=== PATIENT | female | born 1990 | race Hispanic/Latino ===

== ENCOUNTER 2018-12-24 12:36 | Observation (INO) | payer MEDICAID ==
[~2018-12-24] VITALS: Ht 165.1 cm; Wt 96.6 kg
[2018-12-24 13:30] LABS: APPEARANCE,URINE Clear (CLEAR); BILIRUBIN,URINE Negative (NEGATIVE); COLOR,URINE Yellow (YELLOW); GLUCOSE, URINE (UA) Negative (NEGATIVE); KETONES,URINE 40 mg/dL (NEGATIVE); LEUKOCYTE ESTERASE ,URINE Trace (NEGATIVE); NITRATE,URINE Negative (NEGATIVE); OCCULT BLOOD,URINE Negative (NEGATIVE); PROTEIN,URINE Negative (NEGATIVE)
[2018-12-24] MEDS ORDERED: PROMETHAZINE HCL 25 MG/ML 1ML AMPULE IM PRN ×2 (13:30→17:45)
[2018-12-24] MEDS ORDERED: LACTATED RINGERS 1000ML IV SCH (13:30)
[2018-12-24 13:33] LABS: BASOPHILS % (AUTO) 0.2 % (0.0-5.0); EOSINOPHILS % (AUTO) 0.2 % (0.0-8.0); LYMPHOCYTES % (AUTO) 12.8 % (21.0-51.0); MEAN CORPUSCULAR HEMOGLOBIN 29.4 pg (27.0-33.0); MEAN CORPUSCULAR HGB CONC 34.5 g/dL (32.0-36.0); MEAN CORPUSCULAR VOLUME 85.4 fL (79-99); MONOCYTES % (AUTO) 4.3 % (3.0-13.0); NEUTROPHILS % (AUTO) 82.5 % (40.0-77.0); NUCLEATED RED BLOOD CELLS 0.1 % (0.0-0.19); PLATELET COUNT (AUTO) 187 K/uL (130-400); RED CELL DISTRIBUTION WIDTH 14.7 % (11.0-15.5); WHITE BLOOD COUNT (AUTO) 10.9 K/uL (4.8-10.8)
[2018-12-24 13:38] LABS: CREATININE 0.7 mg/dL (0.5-1.5); POTASSIUM 3.9 mmol/L (3.5-5.1)
[2018-12-24 13:40] LABS: BACTERIA,URINE Rare /HPF (None Seen); RBC,URINE 0-1 /HPF (0-1)
[2018-12-24 13:41] LABS: SQUAMOUS EPITHELIAL CELL,UR Few /HPF (0-2)
[2018-12-24 13:43] LABS: ALBUMIN 2.7 g/dL (3.5-5.0); BILIRUBIN,TOTAL 0.7 mg/dL (0.2-1.0); TOTAL PROTEIN, SERUM 7.1 g/dL (6.0-8.3); URIC ACID 4.8 mg/dL (2.6-7.2)
[2018-12-24 13:46] LABS: INR 0.88 (0.85-1.15); PARTIAL THROMBOPLASTIN TIME 29.1 SEC (26.3-35.5); PROTHROMBIN TIME 9.3 SEC (9.6-11.6)
[2018-12-24 17:57] VITALS: BP 126/77
[2018-12-24] MEDS: LACTATED RINGERS 1000ML 1,000 ML IV SCH (17:59)
[2018-12-24 19:18] VITALS: BP 117/72
[2018-12-24] MEDS ORDERED: PNV1TABL17 PO (19:21)
[2018-12-24 23:14] VITALS: BP 114/69
--- NOTE | 2018-12-25 00:05 | NUR ---
NST STARTED AT 0005 AND COMPLETED AT 0040. Addendum: 12/25/18 at 0738 by RODRI FOURNIER RN RN Amended: Links added.
[2018-12-25] MEDS: LACTATED RINGERS 1000ML 1,000 ML IV SCH ×2 (02:12→09:58)
[2018-12-25 03:16] VITALS: BP 102/59
--- NOTE | 2018-12-25 06:00 | NUR ---
PT. DENIED N/V ALL SHIFT.
[2018-12-25 07:14] VITALS: BP 101/70
--- NOTE | 2018-12-25 10:02 | NUR ---
ROUNDS DR Maria Eugenia AGUILAR ROUNDED, AT BEDSIDE, ANSWERED ALL PT'S QUESTIONS OR CONCERNS, POC DISCUSSED, PT VERBALIZED UNDERSTANDING
--- NOTE | 2018-12-25 11:05 | NUR ---
NST STARTED AT 10:30am-ENDED AT 11:00am; FHT: 135, VARIABILITY, ACCELERATIONS NOTED; MOVEMENT NOTED ON STRIP
[2018-12-25 11:18] VITALS: BP 122/79
--- NOTE | 2018-12-25 13:05 | NUR ---
DISCHARGE PT STABLE, NO PAIN, NO COMPLAINTS; PT LEFT UNIT, VIA WHEELCHAIR, STILL , ACCOMPANIED BY RN AND SPOUSE CARRYING ALL PERSONAL BELONGINGS AND INSTRUCTIONS; PT LEFT FACILITY IN PERSONAL VEHICLE
[2018-12-29] MEDS ORDERED: PREN1TAB80 PO (20:19)
== END 2018-12-25 13:05 | disposition home or self-care (01) ==
LOC: LDH 12:36 → WSH 17:55
PROVIDERS: ADMIT Specialist; ATTEND Specialist
DX: O99.283 Endocrine, nutritional and metabolic diseases complicating pregnancy, third trimester (principal); E86.0 Dehydration; O10.913 Unspecified pre-existing hypertension complicating pregnancy, third trimester; Z3A.38 38 weeks gestation of pregnancy
CPT/HCPCS: 36415; 59025; 76819; 80053; 81001; 84550; 85025; 85384; 85610; 85730; 96360; 96361 ×2; 96372; G0378 ×25; J2550; J7120 ×3